=== PATIENT | female | born 2000 | race Caucasian/White ===

== ENCOUNTER 2020-08-22 08:56 | Emergency (ER) | payer OTHER, BC ==
[~2020-08-22] VITALS: Ht 152.4 cm; Wt 62.6 kg
--- NOTE | 2020-08-22 09:10 | NUR ---
BIBS C/O RLQ SHARP PAIN R/T BACK SINCE LAST NIGHT, 08/25 PS, TO ER BED 9, HOOKED TO MONITOR, CHANGED TO HOSP GOWN, WARM BLANKET PROVIDED. AWAITING MD PÉREZ
--- NOTE | 2020-08-22 09:20 | NUR ---
DR HERRMANN AT BEDSIDE
--- NOTE | 2020-08-22 09:24 | NUR ---
URINE SAMPLE COLLECTED AND SENT TO LAB
[2020-08-22] MEDS ORDERED: IV NS 0.9% 1,000 ML BAG IV ONE (09:30)
[2020-08-22 09:43] LABS: BASOPHILS % (AUTO) 0.5 % (0.0-2.0); EOSINOPHILS % (AUTO) 1.4 % (0.0-6.0); HEMATOCRIT 39 % (33-45); HEMOGLOBIN 12.7 g/dL (11.5-14.8); LYMPHOCYTES # (AUTO) 1.5 /CMM (0.8-4.8); LYMPHOCYTES % (AUTO) 18.6 % (20.0-44.0); MEAN CORPUSCULAR HGB CONC 33 g/dl (31.0-36.0); MEAN CORPUSCULAR VOLUME 86 fL (82-100); MONOCYTES # (AUTO) 0.5 /CMM (0.1-1.30); MONOCYTES % (AUTO) 6.2 % (2.0-12.0); NEUTROPHILS # (AUTO) 5.8 /CMM (1.8-8.9); NEUTROPHILS % (AUTO) 73.3 % (43.0-81.0); PLATELET COUNT (AUTO) 330 /CMM (150-450); RED BLOOD CELL COUNT(AUTO) 4.53 MIL/uL (4.0-5.2); WHITE BLOOD COUNT (AUTO) 7.9 K/uL (4.3-11.0)
[2020-08-22 09:53] LABS: BILIRUBIN,URINE NEGATIVE (NEGATIVE); COLOR,URINE YELLOW (YELLOW); LEUKOCYTE ESTERASE ,URINE NEGATIVE (NEGATIVE); NITRITE, URINE NEGATIVE (NEGATIVE); PROTEIN,URINE NEGATIVE (NEGATIVE); UGLUCOSE NEGATIVE (NEGATIVE); UROBILINOGEN,URINE 0.2 EU/dL (0.2)
[2020-08-22 10:00] LABS: CALCIUM, SERUM 9.3 mg/dL (8.5-10.1); CREATININE 0.8 mg/dL (0.6-1.3); POTASSIUM 3.7 mmol/L (3.5-5.1)
[2020-08-22 10:26] LABS: BILIRUBIN,DIRECT 0.1 mg/dL (0.0-0.2); BILIRUBIN,TOTAL 0.8 mg/dL (0.2-1.0)
--- NOTE | 2020-08-22 11:32 | NUR ---
TILE SETTER APPRENTICE AT BEDSIDE FOR ALONDRA
--- NOTE | 2020-08-22 12:13 | NUR ---
SPORT INTERN AT BEDSIDE FOR ALONDRA
[2020-08-22 12:54] VITALS: BP 127/84
--- NOTE | 2020-08-22 12:54 | NUR ---
IV removed. Catheter intact and site benign. Pressure and 4x4 applied to site. No bleeding noted.Patient discharged to home in stable condition. Written and verbal after care instructions given. Patient verbalizes understanding of instruction.
[2020-08-22 13:25] LABS: BACTERIA,URINE Moderate /HPF (None Seen); RBC,URINE 0-2 /HPF (0-2); SQUAMOUS EPITHELIAL CELL,UR Many /HPF (None Seen); WBC,URINE 0-2 /HPF (0-3)
[2020-08-22 13:26] LABS: URINE AMORPHOUS URATE Moderate /HPF (None Seen)
== END 2020-08-22 12:56 | disposition home or self-care (01) ==
LOC: ER 09:00
DX: R10.31 Right lower quadrant pain (principal)
CPT/HCPCS: 36415; 74176; 76856 ×2; 80048; 80076; 81001; 83690; 84703; 85025; 87086; 96360; 99285; J7030